=== PATIENT | male | born 1965 | race Caucasian/White ===

== ENCOUNTER 2016-08-20 14:24 | Emergency (ER) | payer OTHER ==
[~2016-08-20] VITALS: Ht 182.9 cm; Wt 73.0 kg
[~2016-08-20 14:24] MED LIST: AUGMENTIN875 MG PO; BACTRIM,SEPT1 TABLET PO; MOBIC7.5 MG PO; NAPROSYN500 MG PO; TRAMADOL HCL50 MG PO
[2016-08-20] MEDS ORDERED: NAPROSYN500 MG PO (15:37)
[2016-08-20 16:07] VITALS: BP 125/74
== END 2016-08-20 16:08 | disposition home or self-care (01) ==
LOC: EME 14:24
DX: S05.11XA Contusion of eyeball and orbital tissues, right eye, initial encounter (principal); Y04.2XXA Assault by strike against or bumped into by another person, initial encounter; Y93.J3 Activity, string instrument playing; Y92.410 Unspecified street and highway as the place of occurrence of the external cause; F17.200 Nicotine dependence, unspecified, uncomplicated
CPT/HCPCS: 70150; 99281; 99283

== ENCOUNTER 2017-03-02 19:26 | Inpatient (IN) | payer OTHER ==
[~2017-03-02] VITALS: Ht 182.9 cm; Wt 81.8 kg
[2017-03-02 20:17] LABS: HEMATOCRIT 43.7 % (38.0-50.0); MCH 29.5 PG (29.0-34.0); MCHC 33.6 G/DL (30.0-36.0); MCV 87.6 FL (86-99); RBC DIS.WIDTH-CV 12.9 % (11.8-14.6); RBC DIS.WIDTH-SD 41.1 % (39-53); RED BLOOD COUNT 4.99 M/uL (4.00-5.50); WHITE BLOOD COUNT 11.2 K/uL (4.1-10.2)
[2017-03-02 20:26] LABS: CHLORIDE 102 mEq/L (99-109); POTASSIUM 3.6 mEq/L (3.7-5.4); SODIUM 137 mEq/L (136-147)
[2017-03-02 20:27] LABS: ADD MEDTOX COMMENT Y; AMPHETAMINE NEGATIVE (500 ng/mL); BARBITURATES NEGATIVE (200 ng/mL); BENZODIAZEPINES NEGATIVE (150 ng/mL); COCAINE NEGATIVE (150 ng/mL); INTERNAL CONTROLS VALID? YES; METHADONE NEGATIVE (200 ng/mL); METHAMPHETAMINE NEGATIVE (500 ng/mL); OPIATES (MORPHINE) NEGATIVE (100 ng/mL); OXYCODONE NEGATIVE (100 ng/mL); PHENCYCLIDINE NEGATIVE (25 ng/mL); PROPOXYPHENE NEGATIVE (300 ng/mL); THC CANNABINOIDS PRESUMPTIVE POSITIVE (50 ng/mL); TRICYCLIC ANTIDEPRESSANTS NEGATIVE (300 ng/mL)
[2017-03-02 20:28] LABS: GLUCOSE 95 mg/dL (70-99)
[2017-03-02 20:29] LABS: ANION GAP 10 MEQ/L (2-14)
[2017-03-02 20:31] LABS: SERUM ETHYL ALCOHOL < 10 mg/dL
[2017-03-02 20:32] LABS: GFR ESTIMATE (CALCULATED) > 59 mL/min/
[2017-03-02 20:34] LABS: UREA NITROGEN (BUN) 8 mg/dL (9-23)
[2017-03-02 20:35] LABS: SALICYLATE < 5.0 MG/DL (15-30)
[2017-03-02 21:19] LABS: HEMATOLOGY COMMENT 1 SN; PLAT.SUFFICIENCY ADEQUATE
[2017-03-02 21:50] LABS: MEAN PLAT.VOLUME 10.9 uM^3 (9.0-12.4); PLATELET COUNT 187 K/uL (156-360)
[2017-03-03 01:34] VITALS: BP 151/106
[2017-03-03 01:40] VITALS: BP 152/104
[2017-03-03] MEDS ORDERED: RISPERDAL2 MG PO (01:57)
[2017-03-03] MEDS ORDERED: SEROQUEL200 MG PO (01:58)
[2017-03-03] MEDS ORDERED: MINIPRESS2 MG PO (01:58)
[2017-03-03 07:36] VITALS: BP 132/93
[2017-03-03 15:45] VITALS: BP 165/112
[2017-03-04 07:26] VITALS: BP 143/92
[2017-03-04 16:03] VITALS: BP 149/101
[2017-03-05 08:00] VITALS: BP 159/98
[2017-03-05] MEDS ORDERED: MINIPRESS2 MG PO (11:22)
[2017-03-05] MEDS ORDERED: ZOLOFT100 MG PO (11:22)
[2017-03-05] MEDS ORDERED: QUETIAPINE FUM300 MG PO (11:22)
[2017-03-05] MEDS ORDERED: RISPERDAL2 MG PO (11:22)
== END 2017-03-05 15:20 | disposition home or self-care (01) | DRG 885 ==
LOC: EME 19:26 → EDOF 03-03 00:15 → 1WEST 03-03 00:15 → ENRESERV 03-03 00:53 → 1WEST 03-03 01:31
PROVIDERS: Emergency Medicine
DX: F33.2 Major depressive disorder, recurrent severe without psychotic features (principal); F43.12 Post-traumatic stress disorder, chronic; R45.851 Suicidal ideations; Z59.0 Homelessness; F12.10 Cannabis abuse, uncomplicated; F17.200 Nicotine dependence, unspecified, uncomplicated; I10 Essential (primary) hypertension; Z56.0 Unemployment, unspecified
CPT/HCPCS: 80048; 84999; 85027; 90839; 99281; 99284; G0480

== ENCOUNTER 2017-06-26 11:52 | Emergency (ER) | payer OTHER ==
[~2017-06-26] VITALS: Ht 182.9 cm; Wt 78.5 kg
[~2017-06-26 11:52] MED LIST changes: +MINIPRESS2 MG PO; +QUETIAPINE FUM300 MG PO; +RISPERDAL2 MG PO; +SEROQUEL200 MG PO; +ZOLOFT100 MG PO
[2017-06-26 14:42] VITALS: BP 135/100
== END 2017-06-26 14:51 | disposition home or self-care (01) ==
LOC: EME 11:52
DX: S60.519A Abrasion of unspecified hand, initial encounter (principal); W01.198A Fall on same level from slipping, tripping and stumbling with subsequent striking against other object, initial encounter; T40.991A Poisoning by other psychodysleptics [hallucinogens], accidental (unintentional), initial encounter; R42 Dizziness and giddiness; I10 Essential (primary) hypertension; F43.10 Post-traumatic stress disorder, unspecified; F32.9 Major depressive disorder, single episode, unspecified; F17.200 Nicotine dependence, unspecified, uncomplicated
CPT/HCPCS: 99281; 99283